=== PATIENT | male | born 1970 | race Caucasian/White ===

== ENCOUNTER 2025-05-07 16:25 | Inpatient (IN) | payer SELFPAY ==
[~2025-05-07] VITALS: Ht 180.3 cm; Wt 95.7 kg
[~2025-05-07 16:25] MED LIST: METO-295 PO; PANT40TA2 PO
[2025-05-07] MEDS: IV NS 0.9% 1,000 ML BAG IV ONE ×2 (17:00→18:00)
[2025-05-07] MEDS: PANTOPRAZOLE 40 MG VIAL IV ONE (17:00)
[2025-05-07] MEDS: ONDANSETRON HCL/PF 4 MG/2 ML VIAL IVP ONE (17:00)
[2025-05-07] MEDS: MORPHINE SULFATE INJ 2 MG/ML DISP.SYRIN IV ONE (17:00)
[2025-05-07] MEDS ORDERED: ONDANSETRON HCL/PF 4 MG/2 ML VIAL ONE ×2 (17:02→18:07)
[2025-05-07] MEDS ORDERED: MORPHINE SULFATE INJ 4 MG/ML DISP.SYRIN ONE (17:02)
[2025-05-07] MEDS ORDERED: PANTOPRAZOLE 40 MG VIAL ONE (17:02)
[2025-05-07 17:05] LABS: PLATELET COUNT (AUTO) 282 K/uL (150-450); RED BLOOD CELL COUNT(AUTO) 4.98 MIL/uL (4.5-6.0); RED CELL DISTRIBUTION WIDTH 13.4 % (11.5-15.0); WHITE BLOOD COUNT (AUTO) 12.5 K/uL (4.3-11.0)
[2025-05-07 17:12] LABS: CALCIUM, SERUM 9.6 mg/dL (8.5-10.1); CREATININE 1.1 mg/dL (0.6-1.3); SODIUM SERUM 134.0 mmol/L (136-145); UREA NITROGEN, BLOOD 13.0 mg/dL (7-18)
[2025-05-07 17:17] LABS: ASPARTATE AMINOTRANSFERASE 41.0 U/L (15-37); TOTAL PROTEIN, SERUM 8.8 g/dL (6.4-8.2)
[2025-05-07] MEDS: PIPERACILLIN /TAZOBACTAM 3.375 G in IV D5W 50 ML IV ONE (18:00)
[2025-05-07] MEDS ORDERED: PIPERACI/TAZO 3.375GM/D5W 50ML PB IV ONE (18:07)
[2025-05-07] MEDS: ONDANSETRON HCL/PF - ER 4 MG/2 ML VIAL IV ONE (18:19)
[2025-05-07] MEDS ORDERED: HYDROMORPHONE 1 MG/1 ML DISP.SYRIN ONE (18:24)
[2025-05-07] MEDS: HYDROMORPHONE 1 MG/1 ML DISP.SYRIN IV ONE (18:30)
[2025-05-07] MEDS ORDERED: PANT40TA2 PO (18:32)
[2025-05-07 18:48] LABS: APPEARANCE,URINE CLEAR (CLEAR); BLOOD, URINE Trace-intact Ery/uL (NEGATIVE); LEUKOCYTE ESTERASE ,URINE Negative (NEGATIVE); NITRITE, URINE NEGATIVE (NEGATIVE); UGLUCOSE Negative (NEGATIVE)
[2025-05-07 18:52] LABS: ADD URINE CULTURE NO; SQUAMOUS EPITHELIAL CELL,UR None Seen /HPF (None Seen)
[2025-05-07] MEDS ORDERED: DOSING PER PHARMACY-ZOSYN IV 1 EA EA XX PRN (21:00)
[2025-05-07] MEDS ORDERED: ACETAMINOPHEN 325 MG TABLET PO PRN (21:00)
[2025-05-07] MEDS ORDERED: MAG HYDROX/AL HYDROX/SIMETH 30 ML UDC PO PRN (21:00)
[2025-05-07] MEDS ORDERED: MAGNESIUM HYDROXIDE 30 ML UDC PO PRN (21:00)
[2025-05-07 21:31] VITALS: BP 167/101; TEMP 97.5; O2SAT 100
[2025-05-07 21:50] VITALS: BP 167/101; TEMP 97.5; O2SAT 100
[2025-05-07] MEDS: MORPHINE SULFATE INJ 4 MG/ML DISP.SYRIN IV PRN (21:51)
[2025-05-08] MEDS ORDERED: PIPERACI/TAZO 3.375GM/D5W 50ML PB IV ONE (01:30)
[2025-05-08] MEDS: ZOSYN IVPB 3.375 G in IV D5W 50ml IV SCH (02:12)
[2025-05-08] MEDS: IV NS 0.9% 1,000 ML IV PRN (02:14)
[2025-05-08] MEDS: ONDANSETRON HCL/PF 4 MG/2 ML VIAL IVP PRN (03:49)
[2025-05-08 07:35] LABS: PLATELET COUNT (AUTO) 259 K/uL (150-450); RED BLOOD CELL COUNT(AUTO) 4.57 MIL/uL (4.5-6.0); RED CELL DISTRIBUTION WIDTH 13.6 % (11.5-15.0); WHITE BLOOD COUNT (AUTO) 15.9 K/uL (4.3-11.0)
[2025-05-08 07:36] LABS: INR 1.03 (0.91-1.10)
[2025-05-08 08:00] VITALS: BP 145/92; TEMP 98.4; O2SAT 97
[2025-05-08] MEDS: PANTOPRAZOLE 40 MG VIAL IV SCH (08:09)
[2025-05-08 08:34] LABS: ASPARTATE AMINOTRANSFERASE 25.0 U/L (15-37); CALCIUM, SERUM 9.1 mg/dL (8.5-10.1); CREATININE 1.0 mg/dL (0.6-1.3); PHOSPHORUS 4.1 mg/dL (2.5-4.9); SODIUM SERUM 140.0 mmol/L (136-145); TOTAL PROTEIN, SERUM 8.1 g/dL (6.4-8.2); UREA NITROGEN, BLOOD 9.0 mg/dL (7-18)
[2025-05-08 12:47] LABS: ASPARTATE AMINOTRANSFERASE 23.0 U/L (15-37); CALCIUM, SERUM 9.1 mg/dL (8.5-10.1); CREATININE 1.1 mg/dL (0.6-1.3); SODIUM SERUM 137.0 mmol/L (136-145); TOTAL PROTEIN, SERUM 8.2 g/dL (6.4-8.2); UREA NITROGEN, BLOOD 8.0 mg/dL (7-18)
[2025-05-08 16:00] VITALS: BP 135/83; TEMP 98.6; O2SAT 96
[2025-05-08] MEDS: PIPERACILLIN /TAZOBACTAM 3.375 G in IV D5W 100 ML IV SCH (16:04)
[2025-05-08 20:00] VITALS: BP 131/83; TEMP 99.3; O2SAT 94
[2025-05-09] MEDS ORDERED: IV PREMIX D5 1/2NS + KCL 1,000 ML IV ONE (01:15)
[2025-05-09] MEDS: Potassium Chloride 20 MEQ in IV D5/0.45 NACL 1,000 ML IV PRN (01:25)
[2025-05-09 08:00] VITALS: BP 114/82; TEMP 98.2; O2SAT 99
[2025-05-09 08:09] LABS: ASPARTATE AMINOTRANSFERASE 20.0 U/L (15-37); CALCIUM, SERUM 9.0 mg/dL (8.5-10.1); CREATININE 1.1 mg/dL (0.6-1.3); PLATELET COUNT (AUTO) 230 K/uL (150-450); RED BLOOD CELL COUNT(AUTO) 4.59 MIL/uL (4.5-6.0); RED CELL DISTRIBUTION WIDTH 13.6 % (11.5-15.0); SODIUM SERUM 135.0 mmol/L (136-145); TOTAL PROTEIN, SERUM 7.8 g/dL (6.4-8.2); UREA NITROGEN, BLOOD 9.0 mg/dL (7-18); WHITE BLOOD COUNT (AUTO) 20.0 K/uL (4.3-11.0)
[2025-05-09] MEDS: Potassium Chloride 20 MEQ in IV D5/0.45 NACL 1,000 ML IV SCH (08:29)
[2025-05-09] MEDS ORDERED: FENTANYL PF 100MCG/2ML AMPUL ONE (09:10)
[2025-05-09] MEDS ORDERED: MIDAZOLAM HCL 2 MG/2ML VIAL ONE (09:11)
[2025-05-09] MEDS ORDERED: BUPIVACAINE 0.5 % PF 150 MG/30 ML VIAL ONE ×2 (09:27→09:28)
[2025-05-09] MEDS ORDERED: LIDOCAINE 1%-EPI 1:100,000 20 ML VIAL ONE (09:27)
[2025-05-09] MEDS ORDERED: CELLULOSE,OXIDIZED 1 EA PACK MC ONE (10:27)
[2025-05-09] MEDS ORDERED: ACETAMINOPHEN 325 MG TABLET ONE (12:15)
[2025-05-09] MEDS: POTASSIUM CL. PREMIX PERIPHER. 50 ML IV SCH (13:00)
[2025-05-09] MEDS ORDERED: oxyCODONE IR immediate release 5 MG TABLET PO PRN (14:30)
[2025-05-09 16:00] VITALS: BP 103/73; TEMP 98.4; O2SAT 95
[2025-05-09] MEDS: SENNOSIDES/DOCUSATE SODIUM 1 TAB TABLET PO SCH (16:45)
[2025-05-09] MEDS: ACETAMINOPHEN 325 MG TABLET PO SCH (17:12)
[2025-05-09] MEDS: oxyCODONE IR immediate release 5 MG TABLET PO PRN (19:30)
[2025-05-09 20:00] VITALS: BP_SYST 11; BP_SYST 111; BP_DIAS 76; TEMP 98.4; O2SAT 95
[2025-05-10 07:43] LABS: PLATELET COUNT (AUTO) 218 K/uL (150-450); RED BLOOD CELL COUNT(AUTO) 3.99 MIL/uL (4.5-6.0); RED CELL DISTRIBUTION WIDTH 13.4 % (11.5-15.0); WHITE BLOOD COUNT (AUTO) 15.7 K/uL (4.3-11.0)
[2025-05-10 08:05] LABS: ASPARTATE AMINOTRANSFERASE 81.0 U/L (15-37); CALCIUM, SERUM 8.8 mg/dL (8.5-10.1); CREATININE 1.1 mg/dL (0.6-1.3); PHOSPHORUS 2.4 mg/dL (2.5-4.9); SODIUM SERUM 137.0 mmol/L (136-145); TOTAL PROTEIN, SERUM 7.5 g/dL (6.4-8.2); UREA NITROGEN, BLOOD 11.0 mg/dL (7-18)
[2025-05-10] MEDS: PANTOPRAZOLE 40 MG TABLET.DR PO SCH (09:19)
[2025-05-10 09:31] VITALS: BP 121/78; TEMP 99; O2SAT 94
[2025-05-10] MEDS: HYDROMORPHONE 1 MG/1 ML DISP.SYRIN IV PRN (10:53)
[2025-05-10] MEDS: K PHOS NEUTRAL 250 MG TABLET PO ONE (15:36)
[2025-05-10 17:01] VITALS: BP 117/89; TEMP 99; O2SAT 93
[2025-05-10 20:00] VITALS: BP 121/81; TEMP 99.1; O2SAT 93
[2025-05-11 08:00] VITALS: BP 116/78; TEMP 98.4; O2SAT 98
[2025-05-11 08:23] LABS: PLATELET COUNT (AUTO) 251 K/uL (150-450); RED BLOOD CELL COUNT(AUTO) 3.81 MIL/uL (4.5-6.0); RED CELL DISTRIBUTION WIDTH 13.0 % (11.5-15.0); WHITE BLOOD COUNT (AUTO) 10.2 K/uL (4.3-11.0)
[2025-05-11 08:45] LABS: PHOSPHORUS 3.0 mg/dL (2.5-4.9)
[2025-05-11 09:57] LABS: ASPARTATE AMINOTRANSFERASE 67.0 U/L (15-37); CALCIUM, SERUM 8.6 mg/dL (8.5-10.1); CREATININE 0.9 mg/dL (0.6-1.3); SODIUM SERUM 132.0 mmol/L (136-145); TOTAL PROTEIN, SERUM 7.0 g/dL (6.4-8.2); UREA NITROGEN, BLOOD 11.0 mg/dL (7-18)
[2025-05-11] MEDS: IV NS 0.9% 1,000 ML IV SCH (11:19)
[2025-05-11] MEDS: POTASSIUM CHLORIDE 20 MEQ POWDER PACKET PO ONE (11:19)
[2025-05-11] MEDS ORDERED: IBUP-1953 PO (13:12)
[2025-05-11] MEDS ORDERED: HYDR-3972 PO (13:12)
== END 2025-05-11 14:20 | disposition home or self-care (01) | DRG 418 ==
LOC: ER 16:30 → MED 20:50
PROVIDERS: ADMIT Nurse Practitioner Family
PROC: 0FT44ZZ Resection of Gallbladder, Percutaneous Endoscopic Approach (ICD-10-PCS; principal; 2025-05-09 10:00)
DX: K80.43 Calculus of bile duct with acute cholecystitis with obstruction (principal); E87.1 Hypo-osmolality and hyponatremia; E66.9 Obesity, unspecified; I10 Essential (primary) hypertension; K21.9 Gastro-esophageal reflux disease without esophagitis; K57.30 Diverticulosis of large intestine without perforation or abscess without bleeding; E87.6 Hypokalemia; K66.0 Peritoneal adhesions (postprocedural) (postinfection); Z68.29 Body mass index [BMI] 29.0-29.9, adult; R73.9 Hyperglycemia, unspecified
CPT/HCPCS: 36415; 71045-TC; 74181-TC; 76700-TC; 80048-TC; 80053-TC; 80076-TC; 81001; 82247-TC; 82248-TC; 83605-TC; 83690-TC; 83735-TC; 84100-TC; 85025-TC; 85610-TC; 86850-TC; 87040-TC; A4223; G0378; J0330; J1100; J1171; J2250; J2270; J2405; J2470; J2543; J2704; J3010; J3480; J3490; J7030; J7050; J7060